=== PATIENT | female | born 1995 | race African-American/Black ===

== ENCOUNTER 2023-06-23 01:14 | Emergency (ER) | payer OTHER, SELFPAY ==
--- NOTE | ~2023-06-23 | US_ITS ---
EARLY OBSTETRICAL ULTRASOUND Clinical indication: with vaginal bleeding. Technique: Transabdominal and endovaginal ultrasound were performed. Multiple sagittal and transverse grayscale, color and pulse wave doppler images obtained. Comparisons: None. FINDINGS: Status: Alive Number: Single Activity: Present Presentation: Variable Amniotic fluid: Normal. Placenta location: Posterior. Cervix: Closed, 3.3 cm in length Uterus and adnexa: Unremarkable Normal heart motion with heartbeat at a rate of 138 beats per minute. Possible small subchorionic hemorrhage at the fundus. Mean gestational age from earliest ultrasound 13 weeks 4 days. Estimated date of delivery from our earliest ultrasound 12/25/2023. Corresponding with 13 weeks, 4 days by sonography. US/US OB limited IMPRESSION: Single intrauterine gestation corresponding with 13 weeks, 4 days by sonography. heart rate of 138 beats per minute. Estimated date of delivery 12/25/2023.
[2023-06-23 01:25] VITALS: BP 146/76; PULSE 93; RESP 18; TEMP 37; O2SAT 100; BMI 29.6
[2023-06-23 02:05] LABS: MANUAL DIFF FLAG NO
[2023-06-23 02:06] LABS: Basophils Absolute Auto 0.1 X10*3/uL (0.0-0.2); Basophils Percent Auto 0.4 % (0-2); Eosinophils Absolute Auto 0.1 X10*3/uL (0.0-0.4); Eosinophils Percent Auto 0.8 % (0-4); Hematocrit 31.2 % (37.0-47.0); Hemoglobin 11.1 g/dl (12.0-16.0); Imm Gran Abs Auto 0.03 X10*3/uL (0.00-0.03); Imm Gran Pct Auto 0.3 % (0.0-0.4); Lymphocytes Absolute Auto 2.9 X10*3/uL (1.2-4.9); Lymphocytes Percent Auto 25.9 % (20-40); Mean Corpuscular HGB Conc 35.6 g/dl (31.0-35.0); Mean Corpuscular Hemoglobin 26.3 pg (27.0-33.0); Mean Corpuscular Volume 73.9 fL (80.0-98.0); Mean Platelet Volume 9.5 fL (9.4-12.3); Monocytes Absolute Auto 0.7 X10*3/uL (0.1-1.2); Monocytes Percent Auto 6.4 % (2-11); Neutrophils Absolute Auto 7.4 x10*3/uL (2.0-8.3); Neutrophils Percent Auto 66.2 % (45-73); Platelet Count 326 X10*3/uL (160-400); Red Blood Count 4.22 X10*6/uL (4.20-5.50); Red Cell Distribution Width 14.6 % (11.0-16.0); White Blood Count 11.2 X10*3/uL (4.8-10.8)
[2023-06-23 02:07] LABS: Appearance Urine Clear; Color Urine Yellow; Glucose Urine UA Negative (Negative); Leukocyte Esterase Urine Negative (Negative); Nitrite Urine Negative (Negative); Specific Gravity - Urine >= 1.030 (1.005-1.025); Urine Blood Negative (Negative); Urine Ketones Negative (Negative); Urine Protein Trace mg/dL (Neg-Trace)
--- OUTSIDE RECORDS SUMMARY | 2023-06-23 02:31 | XMS_ITS | Continuity of Care Document ---
Author Name Unknown Organization [facility] Address [address] [place] [id number] Care Team Providers Care Softball Winder Name Role Phone Baljit ETIENNE, Jef Herr Primary Care Physician Encounter [facility] Date(s): 04/06/20 - 04/06/[address] [address]- [facility] Encounter Diagnosis Sore throat(Final) - 04/06/20 Sore throat(Final) - 04/06/20 Discharge Disposition: A-D/C Home Attending Physician: Howard Edmond MD Admitting Physician: Howard Edmond MD Referring Physician: Not on Staff, Referring MD Allergies, Adverse Reactions, Alerts Substance Reaction Severity Status naproxen hives Active Immunizations Given and Recorded Vaccine Date Status Refusal Reason influenza virus vaccine, inactivated 04/23/19 Give n influenza virus vaccine, inactivated 06/20/12 Give n Human Papillomavirus Vaccine 12/12/12 Given Human Papillomavirus Vaccine 06/20/12 Given Human Papillomavirus Vaccine 1, 2, 3 08/16/06 Give n influ virus vac, H1N1, inactive(oldterm) 4 06/01/09 Given Meningococcal Polysaccharide Vaccine 05/04/09 Give n Tet/Diphth/Acel, Pertussis (oldterm) 5 08/16/06 Gi jose r Measles/Mumps/Rubella Virus Vaccine 6 06/21/00 Giv en Measles/Mumps/Rubella Virus Vaccine 7 12/25/96 Giv en Poliovirus Vaccine, Inactivated 8 06/21/00 Given Poliovirus Vaccine, Inactivated 9 07/08/97 Given Poliovirus Vaccine, Inactivated 10 04/24/96 Given Poliovirus Vaccine, Inactivated 11 02/09/96 Given diphtheria/tetanus/pertussis, acel(DTaP) 12 06/21/00 Given diphtheria/tetanus/pertussis, acel(DTaP) 13 07/08/97 Given diphtheria/tetanus/pertussis, acel(DTaP) 14 06/11/96 Given Haemophilus B Conj Vaccine (oldterm) 15 07/08/97 G iven Haemophilus B Conj Vaccine (oldterm) 16 06/11/96 G iven Haemophilus B Conj Vaccine (oldterm) 17 04/24/96 G iven Haemophilus B Conj Vaccine (oldterm) 18 02/09/96 G iven Varicella Virus Vaccine 19 12/25/96 Given Hepatitis B Vaccine (old term) 20 06/11/96 Given Hepatitis B Vaccine (old term) 21 95 Given Hepatitis B Vaccine (old term) 22 95 Given Diphth/Pertussis, Whl Cell/Tet(oldterm) 23 04/24/96 Given Diphth/Pertussis, Whl Cell/Tet(oldterm) 24 02/09/96 Given 1Result Comment: HPV VACCINE/ VIS 11/16/2005 2Result Comment: HPV VACCINE/ VIS 11/16/2005 3Admin Note: HPV VACCINE/ VIS 11/16/2005 4Admin Note: [employer]/ vis given 5Admin Note: VIS 04/07/2005 6Admin Note: MMR 7Admin Note: MMR 8Admin Note: IPV 9Admin Note: OPV 10Admin Note: OPV 11Admin Note: OPV 12Admin Note: DTap 13Admin Note: DTap 14Admin Note: DTap 15Admin Note: HIB 16Admin Note: HIB 17Admin Note: HIB 18Admin Note: HIB 19Admin Note: VARIVAX 20Admin Note: HEP B 21Admin Note: HEP B 22Admin Note: HEP B 23Admin Note: DTP 24Admin Note: DTP Medications Admelog 100 units/mL injectable solution See Instructions, 20 units before breakfast; 22 units before lunch; 22 units before dinner subcutaneous injections daily, # 15 mL, 4 Refills, Maintenance, 05/09/19 13:41:00 EDT Start Date: 05/09/19 Status: Ordered albuterol CFC free 90 mcg/inh inhalation aerosol 2 puffs, Inhalation, Every 4 hours, PRN for wheezing, # 25 Gm, 3 Refills, Maintenance, 04/08/14 8:22:11, Aerosol, 2 puffs Inhalation Every 4 hours,PRN:for wheezing Start Date: 04/08/14 Status: Ordered Alcohol Pads See Instructions, # 1 box, Refills 1, Tot. Refills 1, Maintenance, OB patient type 2 diabetic: DX: E11.9, 04/23/19 13:34:43 EDT, Compound Start Date: 04/23/19 Status: Ordered Basaglar KwikPen 100 units/mL subcutaneous solution = 50 units, Subcutaneous Injection, Daily, at bedtime, # 15 mL, 4 Refills, Maintenance, 05/09/19 13:41:00 EDT Start Date: 05/09/19 Status: Ordered Freestyle Lite Lancets See Instructions, # 1 box, Refills 1, Tot. Refills 1, Maintenance, OB patient type 2 diabetic: DX: E11.9, 04/23/19 13:34:29 EDT, Compound Start Date: 04/23/19 Status: Ordered Freestyle Lite Monitor See Instructions, # 1 units, Maintenance, OB patient type 2 diabetic: DX: E11.9, 04/23/19 13:34:13 EDT, Compound Start Date: 04/23/19 Status: Ordered Freestyle Lite Test Strips See Instructions, # 1 box, Refills 3, Tot. Refills 3, Maintenance, OB patient type 2 diabetic: DX: E11.9 Test blood sugar four times a day., 05/09/19 13:41:00 EDT, Compound Start Date: 05/09/19 Status: Ordered ibuprofen 800 mg oral tablet 800 mg, 1, tablet, By Mouth, 3 times a day, # 4 tablet, Refills 0, Tot. Refills 0, Maintenance, 05/17/19 12:02:28 EDT, Route to Pharmacy Electronically, [id number], [facility]/pharmacy #[id number] Start Date: 05/17/19 Status: Ordered Insulin Syringe, BD Ultra-Fine 0.3 cc 31 G x 8 mm (5/16in) See Instructions, # 1 box, Refills 2, Tot. Refills 2, Maintenance, OB patient type 2 diabetic: DX: E11.9 Pt to use syringes 4 times a day., 04/25/19 8:33:09 EDT, Compound Start Date: 04/25/19 Status: Ordered miSOPROStol 200 mcg oral tablet 4 tablet = 800 mcg, Vaginally, Once, # 4 tablet, 1 Refills, Soft Stop, 05/17/19 11:58:05 EDT, Tablet Start Date: 05/17/19 Status: Ordered Multivitamins with Folic Acid 1 mg oral tablet 1 tablet, By Mouth, Daily, # 90 tablet, 3 Refills, Maintenance, 04/26/19 15:26:49 EDT, Tablet, 1 tablet By Mouth Daily Start Date: 04/26/19 Status: Ordered Problem List Condition Effective Dates Status Health Status Inform ant H/O Anemia(Confirmed) Active Asthma(Confirmed) 1 Active GBS bacteriuria(Confirmed) Active H/O Chlamydia(Confirmed) Active Constipation(Confirmed) Active Type 2 Diabetes(Confirmed) 2 2018 Active Frequent headaches(Confirmed) Active H/O trichomonal vaginitis(Confirmed) Active H/O transfusion of whole blood(Confirmed) 3 2017 Active H/O bronchitis(Confirmed) Active Hemoglobin C trait(Confirmed) Active H/O Irregular menses(Confirmed) Active H/O Depression(Confirmed) Active Obesity(Confirmed) Active Pre-existing diabetes mellit us affecting in first trimester, antepartum(Confirmed) Active 1managed by PCP - Albuterol as needed 2managed by PCP 3Due to excessive vag bleeding Results Orders for Microbiology Reports Name Date Group A Strep Screen and Culture 04/06/20 Microbiology Reports TEST:Group A Strep Screen and Culture STATUS:Unauthenticated BODY SITE: SOURCE:THROAT COLLECTED DATE/TIME:04/06/20 7:50 PM Group A Strep Screen and Culture SPECIMEN DESCRIPTION : THROAT SWAB SPECIAL REQUESTS : NONE DIRECT EXAM : RAPID GROUP A RESULT IS NEGATIVE, REFER TO CULTURE RESULT. REPORT STATUS : PRELIMINARY REPORT Vital Signs Most recent to oldest [Reference Range]: 1 2 3 Oxygen Saturation [94-100 %] 98 % (04/06/20 10:34 PM) 98 % (04/06/20 6:41 PM) 98 % (04/06/20 6:22 PM) Pulse Rate [55-90 bpm] 96 bpm *H* (04/06/20 10:34 PM) 126 bpm *H* (04/06/20 6:41 PM) 116 bpm *H* (04/06/20 6:22 PM) Blood Pressure [90-138/55-84 mm Hg] 133/81mm Hg (04/06/20 10:34 PM) 130/81mm Hg (04/06/20 6:41 PM) Respiratory Rate [16-30 br/min] 14 br/min *L* (04/06/20 10:34 PM) 18 br/min (04/06/20 6:41 PM) Temperature [96.8-100.4 DegF] 98.8 DegF (04/06/20 10:34 PM) 99.4 DegF (04/06/20 6:41 PM) Mode of Delivery (Oxygen) Room air (04/06/20 10:34 PM) Room air (04/06/20 6:41 PM) Room air (04/06/20 6:22 PM) Blood pressure sites Arm, left (04/06/20 10:34 PM) Arm, left (04/06/20 6:41 PM) Temperature Route Oral (04/06/20 10:34 PM) Oral (04/06/20 6:41 PM) Social History Social History Type Response Smoking Status Never smoker; Tobacc o user in household: No entered on: 02/03/15 Sex
--- OUTSIDE RECORDS SUMMARY | 2023-06-23 02:31 | XMS_ITS | Continuity of Care Document ---
Author Name Unknown Organization [facility] ter Address [address] [place] [id number] Care Team Providers Care Digital Manager Name Role Phone Baljit ETIENNE, Jef Herr Primary Care Physician Encounter [facility] Date(s): 05/06/23 - 05/06/[address] [id number] Discharge Disposition: A-D/C Home Attending Physician: Melina Sánchez MD Admitting Physician: Melina Sánchez MD Referring Physician: Melina Sánchez MD Allergies, Adverse Reactions, Alerts Substance Reaction [...] 05/17/19 12:02:28 EDT, Route to Pharmacy Electronically, [id number], [id number] Start Date: 05/17/19 Status: Ordered Insulin [...] EDT, Tablet Start Date: 05/17/19 Status: Ordered ondansetron 4 mg oral tablet, disintegrating 1 tablet = 4 mg, By Mouth, Every 6 hours, PRN Nausea & Vomiting, # 10 each, 1 Refills, Maintenance, 05/06/23 8:47:00 EDT, Tablet, [id number], Partial fill upon patient request if the prescription is for a schedule II opioid drug., 91.7, kg, 09... Start Date: 05/06/23 Status: Ordered PNV 1 tablet, By Mouth, Daily, 0 Refills, Maintenance, 05/06/23 8:06:00 EDT, Partial fill upon patient request if the prescription is for a schedule II opioid drug. Start Date: 05/06/23 Status: Ordered Multivitamins with Folic Acid 1 mg oral tablet 1 tablet, By Mouth, Daily, # 90 tablet, 3 Refills, Maintenance, 04/26/19 15:26:49 EDT, Tablet, 1 tablet By Mouth Daily Start Date: 04/26/19 Status: Ordered Problem List Condition Confirmation Course Effective Dates Status Health St atus Informant H/O Anemia Confirmed Active Asthma 1 Confirmed Active GBS bacteriuria Confirmed Active H/O Chlamydia Confirmed Active Constipation Confirmed Active Type 2 Diabetes 2 Confirmed 2018 Active Frequent headaches Confirmed Active H/O trichomonal vaginitis Confirmed Active H/O transfusion of whole blood 3 Confirmed 2018 Active H/O bronchitis Confirmed Active Hemoglobin C trait Confirmed Active H/O Irregular menses Confirmed Active H/O Depression Confirmed Active Obesity Confirmed Active 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, antepartum Confirmed Active 1managed by PCP - Albuterol as needed 2managed by PCP 3Due to excessive vag bleeding Vital Signs Most recent to oldest [Reference Range]: 1 2 Weight 91.7 kg (05/06/23 7:51 AM) Oxygen Saturation [94-100 %] 100 % (05/06/23 7:51 AM) Pulse Rate [55-90 bpm] 91 bpm *H* (05/06/23 7:51 AM) Blood Pressure [90-138/55-84 mm Hg] 120/ 50mm Hg (05/06/23 8:53 AM) 144/73mm Hg *H* (05/06/23 7:51 AM) Respiratory Rate [16-30 br/min] 18 br/mi n (05/06/23 7:51 AM) Temperature [96.8-100.4 DegF] 98.8 DegF (05/06/23 7:51 AM) Mode of Delivery (Oxygen) Room air (05/06/23 7:51 AM) Blood pressure sites Arm, right (05/06/23 7:51 AM) Temperature Route Oral (05/06/23 7:51 AM) Dry Weight 91.7 kg (05/06/23 7:51 AM) Weight Obtained Via Standing scale (05/06/23 7:51 AM) Dry Weight Obtained Via Standing scale (05/06/23 7:51 AM) Social History Social History Type Response Smoking Status Never smoker; Tobacc o user in household: No entered on: 02/03/15 Sex Note * Elinor Pennington RN: PERFORM Event Display: Discharge/Transfer Note Hospital Authored Date: [id number] Nursing Discharge Note Entered On: 05/06/2023 9:00 EDT Performed On: 05/06/2023 9:00 EDT by Elinor Pennington RN Nursing Discharge Note 2 Discharge Time : 05/06/2023 9:00 EDT Discharge Level of Care at Discharge : Home/Half-Way/Foster Care Patient Left Unit Via : Ambulatory Patient Accompanied Off Unit with : Other: self DC Instructions Provided & Signed by Pt : Yes Patient Understands D/C Instructions : Yes Patient Instructions Discharge Signed : Yes Did Pt have Specialty Bed or Wound Vac : No Elinor Pennington RN - 05/06/2023 8:58 EDT * Elinor Pennington RN: PERFORM Event Display: Patient Education/Instruction Authored Date: [id number] Inpatient Adult Discharge Instructions [address] [id number] Name: TIFFANIE STACY : 1995 Visit: 05/06/2023 07:44:00 Current Date: 05/06/2023 08:36 Account: [id number] Inpatient Adult Discharge Instructions We would like to thank you for allowing us to assist you with your healthcare needs. The following includes patient education materials and information regarding your injury/illness. Our entire staffstrives to provide an excellent experience for our patients and their families. PLEASE ENSURE YOU FOLLOW-UP PER THE INSTRUCTIONS BELOW! ?? YOUR OPINION IS IMPORTANT TO US! Please complete the survey you may receive by mail or email. Your feedback will be used to make improvements to the healthcare experiences of our patients and their families. Surveys are administered by [employer] ?? If further treatment with your primary care physician or another doctor is recommended, it is important for you to keep the appointment. Call your primary care physician or return to the Emergency Department immediately if your condition worsens, fails to improve, or new symptoms develop. If you need to find a doctor, you can call [facility] [employer] for a referral at [phone] or toll free at [phone], [phone]) or log in to [email or web address].. ?? [facility], in keeping with [facility] guidance, no longer requires face masks for staff, patientsor visitors in most situations. Similiar to time spent indoors at other locations, there is the chance that you were exposed to repiratory viruses during your time with us (such as flu or COVID-19). If you develop symptoms concerning for a viral respiratory infection, please seek testing (and treatment if indicated) from your medical provider or home test kit. ?? You can view and manage your care through the patient portal or by using a health care gm of your choosing. [facility] is a website that allows you to securely view your medical information including your hospital discharge summary, office visit summaries, medications and follow-up visits. You can also request appointments, renew medications, and request access to your medical information using a health care gm of your choosing, or just ask a question. You can enroll at [email or web address] or register during your next office visit. You have been discharged from [facility], Patient Care Unit: [id number]. If you have any questions regarding these instructions after you leave, please call us and we will be happy to assist you. [facility] Your Care Team Attending Physician Melina Sánchez MD Tests Performed Below is a partial list of the tests performed during your hospitalization. You may have had other tests and procedures not included in this list. Please discuss all test results with your provider. Primary Care Provider Jef Smiley MD Advance Directive Health Care Proxy on File No Discharge Vitals Temperature: 98.8 DegF Weight: 91.7 kg Pulse Rate:??91 bpm??High ?? Respiratory Rate: 18 br/min ?? Systolic Blood Pressure:??144 mm Hg??High ?? Diastolic Blood Pressure: 73 mm Hg ?? Oxygen Saturation: 100 % ?? Studies Pending All tests and labs ordered during this hospital stay have been completed unless listed below. Please discuss all pending results with your provider listed above in these instructions. ?? No incomplete studies found What to do next Instructions From Your Doctor Discharge Orders Discharge Medications TIFFANIE STACY :1995 Visit Date:05/06/2023 Medications: Please continue your medications until treatment is completed or stopped by your provider. Medications not listed below should be discontinued. Discuss any questions related to medications with your provider. What How Much When Why Instructions Next Dose Unchanged Albuterol (albuterol CFC free 90 mcg/ inh inhalation aerosol) 2 puff(s) Inhalation Every 4 hours as needed for for wheezing Unchanged Durable Medical Equipment (Alcohol Pads) See instructions OB patient type 2 diabetic: DX: E11.9 ?? Unchanged Durable Medical Equipment (Freestyle Lite Lancets) See instructions OB patient type 2 diabetic: DX: E11.9 ?? Unchanged Durable Medical Equipment (Freestyle Lite Monitor) See instructions OB patient type 2 diabetic: DX: E11.9 ?? Unchanged Durable Medical Equipment (Freestyle Lite Test Strips) See instructions OB patient type 2 diabetic: DX: E11.9 Test blood sugar four times a day. ?? Unchanged Durable Medical Equipment (Insulin Syringe, BD Ultra-Fine 0.3 cc 31 G x 8 mm (5/ 16in)) See instructions Type 2 diabetes mellitus OB patient type 2 diabetic: DX: E11.9 Pt to use syringes 4 times a day. ?? Unchanged Ibuprofen (ibuprofen 800 mg oral tablet) 1 tab(s) Oral 3 times a day Unchanged Insulin Glargine (Basaglar KwikPen 100 units/ mL subcutaneous solution) 50 unit(s) Subcutaneous Injection Daily at bedtime ?? Unchanged Insulin Lispro (Admelog 100 units/ mL injectable solution) See instructions 20 units before breakfast; 22 units before lunch; 22 units before dinner subcutaneous injections daily ?? Unchanged Misoprostol (miSOPROStol 200 mcg oral tablet) 4 tab(s) Vaginally Once Unchanged Multivitamin, (PNV ) 1 tab(s) Oral Daily Unchanged Multivitamin, ( Multivitamins with Folic Acid 1 mg oral tablet) 1 tab(s) Oral Daily Test Results Below is a partial list of the most recent Laboratory test results done prior to this discharge. You may have had other tests and procedures not included in this list. Please discuss all test resultswith your provider. Allergies (NKA means No Known Allergies) naproxen??(hives) Problems Active Problems??(16) Asthma?? Constipation?? Frequent headaches?? GBS bacteriuria?? H/O Anemia?? H/O bronchitis?? H/O Chlamydia?? H/O Depression?? H/O Irregular menses?? H/O transfusion of whole blood?? H/O trichomonal vaginitis?? Hemoglobin C trait?? Obesity?? 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 Type 2 Diabetes?? Education Materials Below is the list of Educational Leaflet Providered with your Discharge Instructions. Morning Sickness: A Daily Struggle?? Adapting to : First Trimester?? Valuables and Belongings I fully understand and agree that [facility] accepts no responsibility for all my personal property including clothing, toilet articles, radios, jewelry, dentures, hearing aids, rings, money, or any other property that is in my possession or is brought to me after admission. I understand certain valuables may be placed in a hospital safe for a short period of time. I understand that the hospital is not liable for loss or damage due to accident, fire, or other natural occurrence while said property is in the safe. I accept full responsibility for any personal property that I keep with me, and will not hold the hospital responsible in case of loss or disappearance. I acknowledge that i have been encouraged to send valuables and belongings home. ? Other Discharge Information ? Pulmonary Rehab Status?? Pulmonary Rehab Discharge Status?? Respiratory Rate: 18 br/min ? Common Emergency Awareness Tips IS IT A STROKE? Act FAST and Check for these signs: FACE Does the face look uneven? ARM Does one arm drift down? SPEECH Does their speech sound strange? TIME Call 9-1-1 at any sign of stroke ?? Heart Attack Signs Chest discomfort: Most heart attacks involve discomfort in the center of the chest and lasts more than a few minutes, or goes away and comes back. It can feel like uncomfortable pressure, squeezing, fullness or pain. Discomfort in upper body: Symptoms can include pain or discomfort in one or both arms, back, neck, jaw or stomach. Shortness of breath: With or without discomfort. Other signs: Breaking out in a cold sweat, nausea, or lightheaded. Remember, MINUTES DO MATTER. If you experience any of these heart attack warning signs, call to get immediate medical attention! ?? Smoking can increase your chances of developing chronic health problems and can cause harmful effects to other family members in your house. If you smoke, you are strongly encouraged to quit. Please call [facility] [employer] Link at [phone] or [phone]) or log in to [email or web address] for referrals to smoking cessation programs. ?? 465 Suicide & Crisis Lifeline is available 27/02 if you or someone you know needs to find a reason to keep living. By calling 849 you'll be connected to a skilled, trained counselor at a crisis center in your area. INPATIENT DISCHARGE INSTRUCTIONS SIGNATURE PAGE TIFFANIE STACY Location:[facility] Registration Date and Time:05/06/2023 07:44 EDT Primary Care Physician: Baljit ETIENNE, Jef Herr, Attending Physician: Princess ETIENNE, Melina Bravo, I TIFFANIE STACY, have received the above patient education materials/instructions and have verbalized understanding. If ambulance or transport services are being used I further acknowledge beinggiven a choice of service. ?? If you need to contact me, please call me at this number: . Patient/Pit Clerk Name: Patient/Pit Clerk Signature: Relationship to Patient: Witness Name/Signature: Date: * Elinor Pennington RN: PERFORM Event Display: Patient Education Leaflets Authored Date: [id number] Morning Sickness: A Daily Struggle ?? Morning Sickness: A Daily Struggle - Video The challenges of parenthood can start before the baby is even born. Radha Cope discusses how she struggled to find food she could eat as she dealt with her morning sickness. To view the video go to this web address: [email or web address] Or, scan this QR code with your smart phone ?? [employer]. All rights reserved. This information is not intended as a substitute for professional medical care. Always follow your healthcare professional's instructions. ?? * Elinor Pennington RN: PERFORM Event Display: Patient Education Leaflets Authored Date: [id number] Adapting to : First Trimester ?? [address] Adapting to : First Trimester As your body adjusts during your first trimester of , you may have to change or limit yourdaily activities. You???ll need more rest. You may also need to use the energy you have more wisely. Your changing body Almost every part of your body is affected as you adapt to . The uterus and cervix will start to soften right away. You may not look very during the first 3 months. But you are likely to have some common signs of early : ??? Nausea ??? Fatigue ??? Frequent urination ??? Mood swings ??? Bloating of the belly ??? Constipation ??? Heartburn ??? Missed or light periods (first trimester bleeding) ??? Nipple or breast tenderness and breast swelling ?? It???s not too late to start good habits What matters most is protecting your baby from this moment on. If you smoke, drink alcohol, or use drugs, now is the time to stop. If you need help, talk with your healthcare provider: ??? Smoking increases the risk of stillbirth??or having a lqf-pchwo-ufbaax baby. If you smoke, quit now. ??? Alcohol and drugs have been linked with miscarriage, defects, intellectual disability, and low weight. Don't drink alcohol or take drugs. ?? Tips to relieve nausea During , nausea can happen at any time of the day, but it may be worse in the morning. To help prevent nausea: ??? Eat small, light meals at frequent intervals. ??? Drink fluids often. ??? Get up slowly. Eat a few unsalted crackers before you get out of bed. ??? Avoid smells that bother you. ??? Avoid spicy and fatty foods. ??? Eat an ice pop??in your favorite flavor. ??? Get plenty of rest. ??? Ask your healthcare provider about taking giuliano or vitamin B6 for nausea and vomiting. ???Talk with your healthcare provider if you take vitamins that upset your stomach. ?? Work concerns The end of the first trimester is a good time to discuss working during with your employer. Follow your healthcare provider???s advice if your job needs you to stand for a long time, work with hazardous tools, or even sit at a desk all day. Your workspace, workload, or scheduled hours mayneed to be adjusted. Perhaps you can change body postures more often or take an extra break. ?? Advice for travel Talk to your healthcare provider first, but the second trimester may be the best time for any travel. You may be advised to avoid certain trips while you???re . Food and water can be concernsin developing countries. Travel by car is a good choice, as you can stop, get out, and stretch. Bring snacks and water along. Fasten the lap belt below your belly, low over your hips. Also be sure to wear the shoulder harness. ?? Intimacy Unless your healthcare provider tells you to, there's no reason to stop having sex while you???re . You or your partner may notice changes in desire. Desire may be less in the first trimesterdue to nausea and fatigue. In the second trimester, sex may be very enjoyable. The third trimester can be a challenge comfort-singh. Try different positions and see what???s best for you both. ?? How daily issues affect your health Many things in your daily life impact your health. This can include transportation, money problems,housing, access to food, and child support case officer. If you can???t get to medical appointments, you may not receive the care you need. When money is tight, it may be difficult to pay for medicines. And living far from a grocery store can make it hard to buy healthy food. If you have concerns in any of these or other areas, talk with your healthcare team. They may know of local resources to assist you. Or they may have a staff person who can help. ?? Last Reviewed Date: 2022 ?? 7542-2098 [employer]. All rights reserved. This information is not intended as a substitute for professional medical care. Always follow your healthcare professional's instructions. ?? Patient Care team information Care Team Personnel Name: Baljit ETIENNE, Jef Herr Position: Reference Physician Member Role: PCP Address: Address: [address] [place] [address]- Care Team Related Persons Name: SHEREEN MUNIZ Address: home [address] [place] [address] Name: LILLIE STACY Address: home [address] [place] [address]
[2023-06-23 02:39] LABS: Alanine Aminotransferase 7 U/L (0-31); Albumin Level 3.8 g/dL (3.5-5.0); Alkaline Phosphatase 62 U/L (39-117); Anion Gap 9 (12-20); Aspartate Amino Transferase 12 U/L (5-31); Bilirubin Total 0.4 mg/dL (0.0-1.0); Blood Urea Nitrogen 7 mg/dL (9-16); Calcium 9.1 mg/dL (8.4-10.2); Carbon Dioxide 25 mmol/L (22-29); Chloride 105 mmol/L (96-108); Creatinine Clr Calc Pharmacy 172.8; Estimated Glomerular Filt Rate > 60; Glucose Random 88 mg/dL (60-115); Potassium 3.8 mmol/L (3.3-5.1); Sodium 135 mmol/L (135-145); Total Protein 7.4 g/dL (6.5-8.0)
[2023-06-23 02:40] LABS: HCG Quantitative 10849 mIU/mL
--- NOTE | 2023-06-23 03:40 | PC.NURSE ---
heart rate confirm by Doppler, 190
--- NOTE | 2023-06-23 03:41 | PC.NURSE ---
Took over care from Kaci Graham, pt awaiting to be seen.
--- NOTE | 2023-06-23 06:41 | PC.NURSE ---
Pt sleeping, reports she has not had any further episodes of vaginal bleeding.
[2023-06-23 06:45] VITALS: BP 127/75; PULSE 85; RESP 16; TEMP 36.7; O2SAT 96
--- NOTE | 2023-06-23 07:27 | ED.GENADULT ---
HPI - General Adult General Chief complaint: OB Stated complaint: Spotting/3 months Time Seen by Provider: 06/23/23 06:23 Source: patient Mode of arrival: ambulatory Limitations: no limitations History of Present Illness HPI narrative: Patient is a 27-year-old female, , [place] 12[birth year]23 presenting to the emergency department with complaint of vaginal bleeding. Patient reports that she was in the bathroom vomiting due to related nausea. States that after she used the bathroom and wiped she noticed a small amount of bright red blood. She denies any clots. She denies any bleeding since. She denies any prior episodes of bleeding with this . Denies any abdominal pain. States that she sees [facility] for her care and has had a 10 week ultrasound to confirm IUP. complaint: vaginal bleeding Onset (ago): hour(s) Associated symptoms: nausea/vomiting Treatments prior to arrival: none Related Data Allergies Allergy/AdvReac Type Severity Reaction Status Date / Time naproxen Allergy Unknown Verified 06/23/23 01:31 Review of Systems Review of Systems: As per HPI. Yes all other systems are reviewed and are negative Constitutional: Constitutional: Reports as per HPI [facility] Social History Social History Alcohol intake: never Smoked in Last 30 Days: No Use of substances other than those prescribed or required for medical reasons: No Advance Directives: No Advance Directives Information Provided: Yes Physical Exam ED Vital Signs: Vital Signs - 24 hr 06/23/23 01:25 06/23/23 06:45 Temperature 98.6 F 98.1 F Pulse Rate 93 85 Respiratory Rate 18 16 Blood Pressure 146/76 H 127/75 Pulse Oximetry 100 96 Oxygen Delivery Method Room Air Room Air BMI result Body Mass Index 29.6 Vital signs have been reviewed and appear to be correct. Blood pressure normal. Heart rate normal. Respiratory rate normal. Temperature normal. Oxygen saturation normal. Const General: cooperative, healthy appearing and no acute distress Orientation/consciousness: oriented to person, oriented to place, oriented to time and patient oriented x3 Limitations: no limitations HENMT Head: Yes normocephalic and Yes atraumatic Ears: external ears normal General nose exam: Normal external nose present Face and sinus: Yes face symmetric Mouth: oropharynx normal and moist mucous membranes Throat: Yes uvula midline Eyes Pupils: Equal, round and reactive pupils present Neck Neck: Yes normal visual inspection and Yes supple Resp Effort & Inspection: normal respiratory effort and able to speak in complete sentences Auscultation: clear to auscultation bilaterally Cardio Rate: regular rate Rhythm: regular rhythm Heart sounds: S1 normal heart sound present and S2 normal heart sound present GI Palpation (GI): Soft to palpation and nontender Auscultation: normoactive bowel sounds General: Yes no CVA tenderness Back/Spine/Pelvis Back: no CVA tenderness Skin General skin exam: elasticity normal and turgor normal Neuro General: oriented to person, oriented to place, oriented to time, patient oriented x3, moves all extremities, no focal motor deficits and CN's II-XI intact bilaterally Cranial nerves: Yes Equal, round and reactive pupils present Cognition (Neuro): normal cognition Extrem General: Yes full ROM, Yes no pedal edema and Yes no calf tenderness Psych Mental Status: mental status grossly normal Affect: normal affect Thought process: Normal thought process present Medical Decision Making Medical Decision Making [facility] Narrative: Patient is a 27-year-old female, , [place] 12/[birth year]23 presenting to the emergency department with complaint of vaginal bleeding. On exam patient is awake, A+Ox3, VS WNL, afebrile, normal neurological exam without focal deficits, physical exam findings as above. Given reported symptoms and physical exam findings, initial differential includes threatened , UTI. Do not suspect ecopic as patient has had ultrasound to confirm IUP. Labs notable for mild leukocytosis and mild anemia, no significant electrolyte abnormalities, no evidence of infection on urinalysis, patient is Rh positive. Ultrasound notable for confirmed IUP with FHR of 138 bpm, placenta posterior, cervix closed. My interpretation is in agreement with the radiologist's interpretation. Differential Diagnosis Differential Diagnoses: The differential diagnosis associated with the presentation includes As per [facility] Lab Data [facility] Lab Attestation statement: I reviewed the patient's lab results. As per [facility] 06/23/23 02:00 06/23/23 02:00 Labs: Lab Results 06/23/23 06/23/23 Range/Units 02:00 09:41 WBC 11.2 H (4.8-10.8) X10*3/uL RBC 4.22 (4.20-5.50) X10*6/uL Hgb 11.1 L (12.0-16.0) g/dl Hct 31.2 L (37.0-47.0) % MCV 73.9 L (80.0-98.0) fL MCH 26.3 L (27.0-33.0) pg MCHC 35.6 H (31.0-35.0) g/dl RDW 14.6 (11.0-16.0) % Plt Count 326 (160-400) X10*3/uL MPV 9.5 (9.4-12.3) fL Immature Gran % (Auto) 0.3 (0.0-0.4) % Neut % (Auto) 66.2 (45-73) % Lymph % (Auto) 25.9 (20-40) % [place] % (Auto) 6.4 (2-11) % Eos % (Auto) 0.8 (0-4) % Baso % (Auto) 0.4 (0-2) % Lymph # (Auto) 2.9 (1.2-4.9) X10*3/uL [place] # (Auto) 0.7 (0.1-1.2) X10*3/uL Eos # (Auto) 0.1 (0.0-0.4) X10*3/uL Baso # (Auto) 0.1 (0.0-0.2) X10*3/uL Abs Immat Gran (auto) 0.03 (0.00-0.03) X10*3/uL Absolute Neuts (auto) 7.4 (2.0-8.3) x10*3/uL Absolute Nucleated RBC 0.000 (0.0-0.012) X10*3/uL Nucleated RBC % (auto) 0.0 (0.0-0.2) /100WBC Sodium 135 (135-145) mmol/L Potassium 3.8 (3.3-5.1) mmol/L Chloride 105 (96-108) mmol/L Carbon Dioxide 25 (22-29) mmol/L Anion Gap 9 L (12-20) BUN 7 L (9-16) mg/dL Creatinine 0.55 (0.5-1.4) mg/dL Estim Creat Clear Calc 172.8 Estimated GFR > 60 Random Glucose 88 (60-115) mg/dL Calcium 9.1 (8.4-10.2) mg/dL Total Bilirubin 0.4 (0.0-1.0) mg/dL AST 12 (5-31) U/L ALT 7 (0-31) U/L Alkaline Phosphatase 62 (39-117) U/L Total Protein 7.4 (6.5-8.0) g/dL Albumin 3.8 (3.5-5.0) g/dL Beta HCG, Quant 68898 mIU/mL Urine Color Yellow Urine Appearance Clear Urine pH 6.0 (5.0-9.0) Ur Specific [place] >= 1.030 H (1.005-1.025) Urine Protein Trace (Neg-Trace) mg/dL Urine Glucose (UA) Negative (Negative) mg/dL Urine Ketones Negative (Negative) mg/dL Urine Blood Negative (Negative) Urine Nitrite Negative (Negative) Ur Leukocyte Esterase Negative (Negative) Blood Type A Positive Independent Interpretation I performed an independent interpretation of an: Ultrasound Interpretation: confirmed IUP with FHR of 138 Radiology Impression Discussion of test interpretation with radiology: I have reviewed the radiologist's reading. Radiologist Impression: US/US OB limited IMPRESSION: Single intrauterine gestation corresponding with 13 weeks, 4 days by sonography. heart rate of 138 beats per minute. Estimated date of delivery 12/25/2023. External Record Review External record reviewed: Inpatient record, Office record and Outpatient record Discharge Plan Discharge Clinical Impression: , threatened Patient Disposition: Home, Self-Care Instructions: Threatened Miscarriage (ED) Additional Instructions: You were evaluated in the emergency department today for vaginal bleeding in which could be related to a threatened miscarriage. Please contact your [employer] for a follow up appointment. Return to the emergency department if you are soaking through more than one pad per hour, have severe abdominal pain, vomiting, fever, or any other concerning symptoms.
== END 2023-06-23 10:51 | disposition home or self-care (01) ==
PROVIDERS: Emergency Provider Emergency Medicine; PCP Internal Medicine
DX: O20.0 Threatened abortion (principal); Z3A.12 12 weeks gestation of pregnancy; Z79.899 Other long term (current) drug therapy
CPT/HCPCS: 36415; 76815; 80053; 81003; 84702; 85025; 86900; 86901; 99284